=== PATIENT | male | born 1970 | race Two or more races ===

== ENCOUNTER 2020-06-21 13:23 | Emergency (ER) | payer OTHER ==
[~2020-06-21] VITALS: Ht 170.2 cm; Wt 90.7 kg
[~2020-06-21 13:23] MED LIST: ALBUTEROL SULF8.5 GM INH; AMOXICILLIN500 MG PO; AZITHROMYCIN250 MG PO; PREDNISONE20 MG PO; PROMETHAZINE/COD5 ML PO; PROVENTIL2 MG PO
[2020-06-21 13:58] VITALS: BP 126/83
--- NOTE | 2020-06-21 13:58 | Emergency Room Report ---
History of Present Illness General Chief Complaint: Abdominal Pain Source: Patient Present Illness HPI Disclaimer: Please note that this report is being documented using [employer] technology. This can lead to erroneous entry secondary to incorrect interpretation by the dictating instrument. HPI: 49-year-old male history of diverticulitis presents from home due to left lower quadrant pain. He states it has been present for the past 2 days. He states he had similar pain approximately 7 months ago and was diagnosed with diverticulitis at an outside hospital. No nausea no vomiting no fevers. Pain is 8 out of 10 left lower quadrant and nonradiating. Patient denies any urinary complaints. PMH: Diverticulitis PSH: Reviewed Social Hx: Patient denies any smoking drinking or illicit drug use Allergies: Coded Allergies: No Known Allergies (Unverified , 09/10/12) COVID-19 Screening Contact w/high risk pt: No Experienced COVID-19 symptoms?: No COVID-19 Testing performed VISITOR SERVICES INFORMATION ASSISTANT: No Patient History Reviewed Nursing Documentation: PMH: Agreed; PSxH: Agreed Nursing Documentation-PMH Past Medical History: No Stated History Review of Systems All Other Systems: negative except mentioned in HPI Physical Exam Vital Signs Date Time Temp Pulse Resp B/P (MAP) Pulse Ox O2 Delivery O2 Flow Rate FiO2 06/21/20 13:34 98.2 100 20 122/87 (99) 96 Room Air Sp02 EP Interpretation: reviewed, normal General Appearance: well appearing, no apparent distress Head: normocephalic, atraumatic Eyes: bilateral eye PERRL, bilateral eye EOMI ENT: hearing grossly normal, moist mucus membranes Neck: full range of motion, supple Respiratory: lungs clear, normal breath sounds, no rhonchi, no respiratory distress, no retraction, no wheezing Cardiovascular #1: normal peripheral pulses, regular rate, rhythm, no murmur Gastrointestinal: soft, non-distended, no guarding, tenderness - Mild left lower quadrant tenderness Neurologic: alert, oriented x3, no focal defects Skin: normal color, warm/dry Medical Decision Making Diagnostic Impression: Primary Impression: Diverticulitis ER Course MDM: Differential diagnosis included but not limited to diverticulitis, c onstipation, UTI, to name a few. Clinical course-patient had basic laboratory studies sent. Exam did demonstrate mild left lower quadrant tenderness. He denied any hematochezia. He has a history of diverticulitis, he states this feels similar. Vital signs were stable. Laboratory studies showed no significant abnormalities. As patient has a similar episode in the past. He was in no acute distress. Low suspicion for abscess. Will discharge on p.o. antibiotics. Instructed to return immediately for any worsening symptoms or if not improved on p.o. antibiotics. Labs - Laboratory Tests Test 06/21/20 13:45 06/21/20 13:55 Urine Color Yellow Urine Appearance Clear Urine pH 6 (4.5-8.0) Urine Specific [place] 1.015 (1.005-1.035) Urine Protein Negative (NEGATIVE) Urine Glucose (UA) Negative (NEGATIVE) Urine Ketones Negative (NEGATIVE) Urine Blood 1+ (NEGATIVE) H Urine Nitrite Negative (NEGATIVE) Urine Bilirubin Negative (NEGATIVE) Urine Urobilinogen Normal MG/DL (0.0-1.0) Urine Leukocyte Esterase Negative (NEGATIVE) Urine RBC 0-2 /HPF (0 - 0) H Urine WBC 0-2 /HPF (0 - 0) Urine Squamous Epithelial Cells Occasional /LPF Urine Bacteria Occasional /HPF (NONE) White Blood Count 7.7 K/UL (4.8-10.8) Red Blood Count 5.50 M/UL (4.70-6.10) Hemoglobin 17.0 G/DL (14.2-18.0) Hematocrit 48.9 % (42.0-52.0) Mean Corpuscular Volume 89 FL (80-99) Mean Corpuscular Hemoglobin 30.9 PG (27.0-31.0) Mean Corpuscular Hemoglobin Concent 34.8 G/DL (32.0-36.0) Red Cell Distribution Width 11.3 % (11.6-14.8) L Platelet Count 320 K/UL (150-450) Mean Platelet Volume 5.3 FL (6.5-10.1) L Neutrophils (%) (Auto) 54.8 % (45.0-75.0) Lymphocytes (%) (Auto) 36.9 % (20.0-45.0) Monocytes (%) (Auto) 6.6 % (1.0-10.0) Eosinophils (%) (Auto) 0.7 % (0.0-3.0) Basophils (%) (Auto) 1.0 % (0.0-2.0) Sodium Level 141 MMOL/L (136-145) Potassium Level 4.1 MMOL/L (3.5-5.1) Chloride Level 105 MMOL/L (98-107) Carbon Dioxide Level 25 MMOL/L (21-32) Anion Gap 11 mmol/L (5-15) Blood Urea Nitrogen 24 mg/dL (7-18) H Creatinine 0.9 MG/DL (0.55-1.30) Estimated Glomerular Filtration Rate > 60 mL/min (>60) Glucose Level 117 MG/DL (74-106) H Calcium Level 8.8 MG/DL (8.5-10.1) Total Bilirubin 0.3 MG/DL (0.2-1.0) Aspartate Amino Transferase (AST) 28 U/L (15-37) Alanine Aminotransferase (ALT) 52 U/L (12-78) Alkaline Phosphatase 123 U/L (46-116) H Total Protein 8.0 G/DL (6.4-8.2) Albumin 4.0 G/DL (3.4-5.0) Globulin 4.0 g/dL Albumin/Globulin Ratio 1.0 (1.0-2.7) Lipase 200 U/L (73-393) On reevaluation: Patient remained in no acute distress Plan-discharge home, p.o. antibiotics, return precautions were given. Last Vital Signs Date Time Temp Pulse Resp B/P (MAP) Pulse Ox O2 Delivery O2 Flow Rate FiO2 06/21/20 13:34 98.2 100 20 122/87 (99) 96 Room Air Disposition: HOME, SELF-CARE Condition: Stable Scripts Acetaminophen* (TYLENOL EXTRA STRENGTH*) 500 Mg Tablet 500 MG ORAL Q8H PRN for For Pain, #30 TAB 0 Refills Prov: Yuriy Wilde M.D. 06/21/20 Metronidazole* (FLAGYL*) 500 Mg Tablet 500 MG ORAL THREE TIMES A DAY, #21 TAB Prov: Yuriy Wilde M.D. 06/21/20 Ciprofloxacin Hcl* (CIPROFLOXACIN HCL*) 500 Mg Tablet 500 MG ORAL Q12H, #14 TAB 0 Refills Prov: Yuriy Wilde M.D. 06/21/20 Yuriy Wilde M.D. Jun 21, 2020 13:58
[2020-06-21 14:30] LABS: ANION GAP 11 mmol/L (5-15); BLOOD UREA NITROGEN 24 mg/dL (7-18); CALCIUM 8.8 MG/DL (8.5-10.1); CARBON DIOXIDE 25 MMOL/L (21-32); CHLORIDE 105 MMOL/L (98-107); CREATININE 0.9 MG/DL (0.55-1.30); POTASSIUM 4.1 MMOL/L (3.5-5.1); SODIUM 141 MMOL/L (136-145)
[2020-06-21] MEDS ORDERED: Ketorolac 30mg Inj IV ONE (14:30)
[2020-06-21 14:34] LABS: ALANINE AMINOTRANSFERASE 52 U/L (12-78); ALKALINE PHOSPHATASE 123 U/L (46-116); ASPARTATE AMINO TRANSFERASE 28 U/L (15-37); BILIRUBIN,TOTAL 0.3 MG/DL (0.2-1.0)
[2020-06-21 14:43] LABS: APPEARANCE,URINE CLEAR; BILIRUBIN, URINE NEGATIVE (NEGATIVE); COLOR,URINE YELLOW; GLUCOSE, URINE (UA) NEGATIVE (NEGATIVE); KETONES,URINE NEGATIVE (NEGATIVE); LEUKOCYTE ESTERASE ,URINE NEGATIVE (NEGATIVE); NITRITE,URINE NEGATIVE (NEGATIVE); PH,URINE 6 (4.5-8.0); PROTEIN,URINE NEGATIVE (NEGATIVE); UROBILINOGEN,URINE NORMAL MG/DL (0.0-1.0)
[2020-06-21 14:53] LABS: EOSINOPHILS % (AUTO) 0.7 % (0.0-3.0); HEMATOCRIT 48.9 % (42.0-52.0); LYMPHOCYTES % (AUTO) 36.9 % (20.0-45.0); MEAN CORPUSCULAR VOLUME 89 FL (80-99); MONOCYTES % (AUTO) 6.6 % (1.0-10.0); NEUTROPHILS % (AUTO) 54.8 % (45.0-75.0); PLATELET COUNT 320 K/UL (150-450); RED CELL DISTRIBUTION WIDTH 11.3 % (11.6-14.8); WHITE BLOOD COUNT 7.7 K/UL (4.8-10.8)
[2020-06-21] MEDS ORDERED: TYLENOL EXTRA500 MG ORAL (15:16)
[2020-06-21] MEDS ORDERED: CIPROFLOXACIN500 M2 ORAL (15:16)
[2020-06-21] MEDS ORDERED: METRONIDAZOLE500 MG ORAL (15:16)
[2020-06-21 15:30] VITALS: BP 120/85
== END 2020-06-21 15:32 | disposition home or self-care (01) ==
LOC: EMR 13:50
DX: K57.92 Diverticulitis of intestine, part unspecified, without perforation or abscess without bleeding (principal)
CPT/HCPCS: 36415; 80053; 81003; 83690; 85025; 96374; 99284; J1885

== ENCOUNTER 2020-07-04 15:34 | Inpatient (IN) | payer OTHER ==
[~2020-07-04] VITALS: Ht 167.6 cm; Wt 75.9 kg
[~2020-07-04 15:34] MED LIST changes: +CIPROFLOXACIN500 M2 ORAL; +METRONIDAZOLE500 MG ORAL; +TYLENOL EXTRA500 MG ORAL
[2020-07-04 15:44] VITALS: BP 136/88
--- NOTE | 2020-07-04 15:44 | NUR ---
ED Nurse Note: Pt walked in to ED from home c/o left lower abdominal pain and rectal bleeding x 2 days. Denies nausea, vomiting, diarrhea. Pt reports light red blood streaks in the stool. Lastt BM was this morning with regular formed stool. Pt AAOx4, verbally responsive. No SOB, on room air. Pt placed on manager monitoring. ERPA at bedside.
[2020-07-04] MEDS ORDERED: Omnipaque-300 100ml vial INJ PRN (16:00)
--- NOTE | 2020-07-04 16:00 | NUR ---
ED Nurse Note: IV line established. Blood and urine sent to lab.
--- NOTE | 2020-07-04 16:09 | NUR ---
ED Nurse Note: ERPA changed Promethazine 1ml IM order to Promethazine 1ml IVP. Med given as ordered.
[2020-07-04] MEDS ORDERED: Morphine Sulfate 2mg/ml Inj(IV/IM USE ONLY) IVP ONE (16:15)
[2020-07-04 16:21] LABS: BASOPHILS % (AUTO) 1.1 % (0.0-2.0); HEMATOCRIT 49.8 % (42.0-52.0); LYMPHOCYTES % (AUTO) 39.7 % (20.0-45.0); MEAN CORPUSCULAR VOLUME 93 FL (80-99); MONOCYTES % (AUTO) 6.8 % (1.0-10.0); NEUTROPHILS % (AUTO) 51.3 % (45.0-75.0); PLATELET COUNT 281 K/UL (150-450); RED BLOOD COUNT 5.38 M/UL (4.70-6.10); RED CELL DISTRIBUTION WIDTH 11.8 % (11.6-14.8); WHITE BLOOD COUNT 8.4 K/UL (4.8-10.8)
[2020-07-04 16:22] LABS: APPEARANCE,URINE CLEAR; BILIRUBIN, URINE NEGATIVE (NEGATIVE); COLOR,URINE AMBER; GLUCOSE, URINE (UA) NEGATIVE (NEGATIVE); KETONES,URINE NEGATIVE (NEGATIVE); LEUKOCYTE ESTERASE ,URINE 2+ (NEGATIVE); NITRITE,URINE NEGATIVE (NEGATIVE); PH,URINE 5 (4.5-8.0); PROTEIN,URINE NEGATIVE (NEGATIVE); UROBILINOGEN,URINE NORMAL MG/DL (0.0-1.0)
[2020-07-04 16:32] LABS: ANION GAP 10 mmol/L (5-15); BLOOD UREA NITROGEN 24 mg/dL (7-18); CALCIUM 8.8 MG/DL (8.5-10.1); CARBON DIOXIDE 26 MMOL/L (21-32); CHLORIDE 103 MMOL/L (98-107); POTASSIUM 3.8 MMOL/L (3.5-5.1); SODIUM 139 MMOL/L (136-145)
--- NOTE | 2020-07-04 16:37 | Emergency Room Report ---
History of Present Illness General Chief Complaint: Abdominal Pain Source: Patient (Yi Kenny) Present Illness HPI 49-year-old male with history of diverticulitis who was last seen in [place] [facility] 13 days ago currently taking Cipro and Flagyl here complaining of 2 days of left lower quadrant abdominal pain rating a 10 out of 10 with 1 day of profuse amount of rectal bleeding. Patient did not have any blood in stool last time that he was here. Denies any fever and chills, diffuse abdominal pain, nausea vomiting. Has been compliant with taking his antibiotics. Reports he has been taking Tylenol for pain with minimal relief. Denies chest pain, shortness of breath, headache and dizziness. Vital signs are within normal limits. Denies alcohol intake, tobacco smoke, drug use. Denies taking any blood thinners. 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: No (Yi Kenny) Patient History Past Medical History: see triage record Past Surgical History: none Pertinent Family History: none Reviewed Nursing Documentation: PMH: Agreed; PSxH: Agreed (Yi Kenny) Nursing Documentation-PMH Past Medical History: No Stated History (Yi Kenny) Review of Systems All Other Systems: negative except mentioned in HPI (Yi Kenny) Physical Exam Vital Signs Date Time Temp Pulse Resp B/P (MAP) Pulse Ox O2 Delivery O2 Flow Rate FiO2 07/04/20 15:39 98.1 101 18 136/88 (104) 96 Room Air Sp02 EP Interpretation: reviewed, normal General Appearance: no apparent distress, alert, GCS 15, non-toxic Head: normocephalic, atraumatic Eyes: bilateral eye normal inspection, bilateral eye PERRL ENT: hearing grossly normal, normal pharynx, no angioedema, normal voice Neck: full range of motion, supple/symm/no masses Respiratory: chest non-tender, lungs clear, normal breath sounds, speaking full sentences Cardiovascular #1: regular rate, rhythm, no edema, no murmur Gastrointestinal: non tender, soft, no organomegaly, no peritonitis, no bruit, non-distended, no rebound, guarding - Left lower quadrant Rectal: deferred Genitourinary: no CVA tenderness Musculoskeletal: back normal Neurologic: alert, motor strength/tone normal, oriented x3, sensory intact, responsive, speech normal Psychiatric: judgement/insight normal, memory normal, mood/affect normal, no suicidal/homicidal ideation Skin: no rash Lymphatic: no adenopathy (Yi Kenny) Medical Decision Making PA Attestation All diagnosis and treatment plans were discussed and reviewed by my supervising physician Dr. Marshall (Yi Kenny) Diagnostic Impression: Primary Impression: GI bleed Additional Impressions: Diverticulosis Abdominal pain ER Course 49-year-old male with history of diverticulitis who was last seen in [place] [facility] 13 days ago currently taking Cipro and Flagyl here complaining of 2 days of left lower quadrant abdominal pain rating a 10 out of 10 with 1 day of profuse amount of rectal bleeding. Patient did not have any blood in stool last time that he was here. Denies any fever and chills, diffuse abdominal pain, nausea vomiting. Has been compliant with taking his antibiotics. Reports he has been taking Tylenol for pain with minimal relief. Denies chest pain, shortness of breath, headache and dizziness. Vital signs are within normal limits. Denies alcohol intake, tobacco smoke, drug use. Denies taking any blood thinners. Ddx considered but are not limited to: appendicitis, cholecystis, gastritis, gastroenteritis, UTI, pyelonephritis, SBO, diverticulitis, influenza with GI manifestation, VT, pancreatitis Vital signs: are WNL, pt. is afebrile H&PE are most consistent with: GI bleed ORDERS: abdominal CT, abdominal pain set, EKG, ED INTERVENTIONS: NS bolus, Zofran, Pepcid, morphine Patient was admitted with diagnosis of GI bleed to under supervision of : Rolando pt stable at time of admission (Yi Kenny) ER Course I spoke with Dr. Krishna from the [facility], and reviewed the patients presentation, workup, results, and treatment. They will admit the patient for further care and evaluation, and assume care of the patient at this time. (Leeann Marshall D.O.) EKG Diagnostic Results Rate: normal Rhythm: NSR ST Segments: no acute changes Other Impression No acute ST changes ASA given to the pt in ED: No (Yi Kenny) CT/MRI/US Diagnostic Results CT/MRI/US Diagnostic Results : Imaging Test Ordered: CT chest abd pelvis with contrast Impression FINDINGS: Lung bases: Unremarkable. ABDOMEN: Liver: Unremarkable. Gallbladder and bile ducts: Unremarkable. Pancreas: Unremarkable. Spleen: Unremarkable. Adrenals: Unremarkable. Kidneys and ureters: Unremarkable. No obstructing stones. No hydronephrosis. Stomach and bowel: Mild colonic diverticulosis without diverticulitis. PELVIS: Appendix: Normal appendix. Bladder: Unremarkable. Reproductive: Unremarkable as visualized. ABDOMEN and PELVIS: Intraperitoneal space: Unremarkable. No free air. No significant fluid collection. Bones/joints: No acute fracture. Soft tissues: Unremarkable. Vasculature: Unremarkable. Lymph nodes: Unremarkable. IMPRESSION: 1. No acute abnormality. 2. Mild colonic diverticulosis without diverticulitis. (Yi Kenny) Last Vital Signs Date Time Temp Pulse Resp B/P (MAP) Pulse Ox O2 Delivery O2 Flow Rate FiO2 07/04/20 15:44 101 18 Room Air 07/04/20 15:44 98.1 136/88 96 (Yi Kenny) Disposition: ADMITTED INPATIENT Condition: Serious Referrals: NOT CHOSEN IPA/,REFERRING (PCP) Yi Kenny Jul 04, 2020 16:37 Leeann Marshall D.O. Jul 04, 2020 20:13
[2020-07-04 16:39] LABS: ALANINE AMINOTRANSFERASE 74 U/L (12-78); ALBUMIN 3.9 G/DL (3.4-5.0); ALBUMIN/GLOBULIN RATIO 1.2 (1.0-2.7); ALKALINE PHOSPHATASE 106 U/L (46-116); ASPARTATE AMINO TRANSFERASE 35 U/L (15-37); BILIRUBIN,TOTAL 0.2 MG/DL (0.2-1.0)
--- NOTE | 2020-07-04 16:50 | NUR ---
ED Nurse Note: Pt taken to CT via puma, accompanied by a tech.
--- NOTE | 2020-07-04 17:06 | NUR ---
ED Nurse Note: Pt returned from CT.
--- NOTE | 2020-07-04 17:20 | Diagnostic Imaging Report ---
EXAM: CT Abdomen and Pelvis With Intravenous Contrast CLINICAL HISTORY: PAIN TECHNIQUE: Axial computed tomography images of the abdomen and pelvis with intravenous contrast. CTDI is 6.1 mGy and DLP is 347.5 mGy-cm. One or more of the following dose reduction techniques were used: automated exposure control, adjustment of the mA and/or kV according to patient size, use of iterative reconstruction technique. COMPARISON: No relevant prior studies available. FINDINGS: Lung bases: Unremarkable. ABDOMEN: Liver: Unremarkable. Gallbladder and bile ducts: Unremarkable. Pancreas: Unremarkable. Spleen: Unremarkable. Adrenals: Unremarkable. Kidneys and ureters: Unremarkable. No obstructing stones. No hydronephrosis. Stomach and bowel: Mild colonic diverticulosis without diverticulitis. PELVIS: Appendix: Normal appendix. Bladder: Unremarkable. Reproductive: Unremarkable as visualized. ABDOMEN and PELVIS: Intraperitoneal space: Unremarkable. No free air. No significant fluid collection. Bones/joints: No acute fracture. Soft tissues: Unremarkable. Vasculature: Unremarkable. Lymph nodes: Unremarkable. IMPRESSION: 1. No acute abnormality. 2. Mild colonic diverticulosis without diverticulitis.
--- NOTE | 2020-07-04 18:29 | NUR ---
ED Nurse Note: Pt unable to provide stool specimen at this time. ERPA aware.
[2020-07-04 18:45] VITALS: BP 115/87
--- NOTE | 2020-07-04 19:02 | NUR ---
HAND-OFF: Report given to Liza PARKER.
--- NOTE | 2020-07-04 19:06 | NUR ---
ED Nurse Note: Endorsed care of pt. Pt found laying in bed, AAOx4. No acute distress noted in stable condition. Pt has not been able to give BM sample.
[2020-07-04] MEDS ORDERED: cefTRIAXone 1 GM in NS 55 ML IVPB ONE (19:15)
[2020-07-04] MEDS ORDERED: Pantoprazole Inj IVP ONE (19:15)
[2020-07-04] MEDS ORDERED: DICYCLOMINE HCL10 MG ORAL (19:34)
[2020-07-04] MEDS ORDERED: XANAX0.5 MG ORAL (19:34)
[2020-07-04] MEDS ORDERED: Piperacillin/Tazobactam 3.375 GM in NS 110 ML IVPB ONE (20:00)
[2020-07-04] MEDS ORDERED: Morphine Sulfate 2mg/ml Inj(IV/IM USE ONLY) IVP PRN (20:00)
--- NOTE | 2020-07-04 20:11 | NUR ---
Michael escoto in [facility] - 07/04/20 at 2013 by CHUN ariel [phone]
--- NOTE | 2020-07-04 20:11 | NUR ---
ariel [phone]
--- NOTE | 2020-07-04 20:13 | NUR ---
ariel, patient's son [phone]
--- NOTE | 2020-07-04 20:41 | NUR ---
ED Nurse Note: cultures sent to lab
[2020-07-04 20:43] VITALS: BP 121/86
--- NOTE | 2020-07-04 20:49 | NUR ---
ED Nurse Note: Report given to KEITH Mclain in med surg.
--- NOTE | 2020-07-04 21:00 | NUR ---
ED Nurse Note: pt transported to med surg floor.
--- NOTE | 2020-07-04 21:00 | NUR ---
NURSE NOTES: ADMITTED 49 YEAR OLD MALE TO ROOM 414 BED 1 VIA WHEELCHAIR FROM EMERGENCY DEPARTMENT. PATIENT AWAKE, ALERT/ORIENTED X4, VERBALLY RESPONSIVE, CHIEF COMPLAINT, ABDOMINAL PAIN / LEFT LOWER QUADRANT, RECTAL BLEED X2 DAYS - ADMITTING DIAGNOSIS GI BLEED, UNDER THE CARE OF DR. RESENDIZ. IV INTACT TO RIGHT AC/GAUGE 20, NO REDNESS/SWELLING NOTED. NO SIGNS AND SYMPTOMS OFACUTE CARDIO RESPIRATORY DISTRESS/SHORTNESS OF BREATH, NO PERIPHERAL EDEMA NOTED. ABDOMEN SOFT/NON DISTENDED/AUDIBLE BOWEL SOUNDS, NO N/V/D (RECTAL BLEED X2 DAYS), TENDERNESS LEFT LOWER QUADRANT, SPECI CONTRERAS PLACED IN RESTROOM FOR STOOL SPECIMEN. MEDICATION RECONCILIATION COMPLETED. ORIENTATED PATIENT TO ROOM/ENVIRONMENT. SIDE RAILS UP X2, BED IN LOWEST POSITION FOR SAFETY, ENCOURAGED PATIENT TO UTILIZE CALL LIGHT FOR ASSISTANCE, VERBALIZED UNDERSTANDING. NAD. VSS.
[2020-07-04 21:30] VITALS: BP 119/74
[2020-07-05] VITALS: BP 110/76
[2020-07-05 04:00] VITALS: BP 114/72
--- NOTE | 2020-07-05 07:15 | NUR ---
NURSE HAND-OFF: Important Events on Shift:[NEW ADMISSION; UNEVENTFUL NIGHT] Patient Status: [STABLE, SLEPT IN LONG INTERVALS, NO ABDOMINAL DISCOMFORT] Diet: [REGULAR, NO MODIFICATIONS] Pending Orders: [STOOL OB, (NO BOWEL MOVEMENT)] Pending Results/Labs:[N/A Pending MD notification:[N/A] Latest Vital Signs: Temperature 97.3 , Pulse 59 , B/P 114 /72 , Respiratory Rate 18 , O2 SAT 99 , Room Air, O2 Flow Rate . Vital Sign Comment: [STABLE, AFEBRILE] Latest Bradshaw Fall Score: 35 Fall Risk: Medium Risk Safety Measures: Call light , Bed Alarm Zone 2, Side Rails Side Rails x2, Bed position Low and Locked. Fall Precautions: Door Sign Patient Fall Education Report given to [KEITH ENRIQUEZ].
--- NOTE | 2020-07-05 07:44 | History and Physical ---
History of Present Illness General Date patient seen: Jul 05, 2020 Reason for Hospitalization: Abdominal Pain Present Illness HPI 44-year-old male with history of recently treated diverticulitis who was seen in [facility] ER about 2 weeks prior to this presentation and was discharged on Cipro and Flagyl now returns with 2 days of left lower quadrant abdominal pain, 10 out of 10 and 1 day of bright red blood per rectum. Patient suffers from chronic constipation. He denies fever, chills, nausea, vomiting. Patient has finished his course of antibiotics. He took Tylenol which provided relief of pain. Patient denies any chest pain, palpitations, shortness of breath, syncope, dizziness or lightheadedness. Patient denies taking aspirin or any blood thinners. Patient takes no other medications and has no other medical problems. 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 He has never had a colonoscopy. Patient denies any family history of colon cancer. Patient denies weight loss or change in stool caliber. 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 Allergies: Coded Allergies: No Known Allergies (Unverified , 09/10/12) COVID-19 Screening Contact w/high risk pt: No Recent Travel to affected area: No Experienced COVID-19 symptoms?: No Medication History Scheduled Ciprofloxacin Hcl* (Ciprofloxacin Hcl*), 500 MG ORAL Q12H Dicyclomine Hcl* (Dicyclomine Hcl*), 20 MG ORAL TID, (Reported) Metronidazole* (Flagyl*), 500 MG ORAL THREE TIMES A DAY Scheduled PRN Acetaminophen* (Tylenol Extra Strength*), 500 MG ORAL Q8H PRN for For Pain Miscellaneous Medications Alprazolam* (Xanax*), 0.5 MG ORAL, (Reported) Patient History Healthcare decision maker Resuscitation status Advanced Directive on File Review of Systems Constitutional: Denies: no symptoms, see HPI, chills, sweats, fever, malaise, weakness, other Eye: Denies: no symptoms, see HPI, eye pain, blurred vision, tearing, double vision, nose pain, nose congestion, acuity changes, discharge, other ENT: Denies: no symptoms, see HPI, ear pain, ear discharge, nose pain, nose congestion, throat pain, throat swelling, mouth pain, hearing loss, nasal discharge, other Respiratory: Denies: no symptoms, see HPI, cough, orthopnea, shortness of breath, stridor, wheezing, POLLOCK, sputum, other Cardiovascular: Denies: no symptoms, see HPI, chest pain, edema, palpitations, syncope, PND, other Gastrointestinal: Reports: see HPI, abdominal pain - LLQ, other - BRBPR Genitourinary: Denies: no symptoms, see HPI, discharge, dysuria, frequency, hematuria, pain, retention, incontinence, urgency, vag bleed/dc, other Musculoskeletal: Denies: no symptoms, see HPI, back pain, gout, joint pain, joint swelling, muscle pain, muscle stiffness, other Skin: Denies: no symptoms, see HPI, rash, change in color, change in hair/nails, dryness, lesions, other Psychiatric: Denies: no symptoms, see HPI, prior hx, anxiety, depressed feelings, emotional problems, SI, HI, hallucinations, other Neurological: Denies: no symptoms, see HPI, headache, numbness, paresthesia, seizure, tingling, tremors, focal weakness, syncope, dizziness, other Endocrine: Denies: no symptoms, see HPI, excessive sweating, flushing, intolerance to temperature, increased thirst, increased urine, unexplained weight loss, other Hematologic/Lymphatic: Denies: no symptoms, see HPI, anemia, blood clots, easy bleeding, easy bruising, swollen glands, diathesis, other Physical Exam General Appearance: WD/WN, no apparent distress, alert Lines, tubes and drains: peripheral HEENT: normocephalic, atraumatic, anicteric, mucous membranes moist, PERRL, EOMI Neck: non-tender, normal alignment, supple Respiratory/Chest: chest wall non-tender, lungs clear, normal breath sounds, no respiratory distress, no accessory muscle use Cardiovascular/Chest: normal peripheral pulses, normal rate, regular rhythm, no gallop/murmur, no JVD Abdomen: soft, tender - LLQ Extremities: normal range of motion, non-tender, no edema Skin Exam: normal pigmentation 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, no motor/sensory deficits, abnormal gait, oriented x 3 Last 24 Hour Vital Signs Date Time Temp Pulse Resp B/P (MAP) Pulse Ox O2 Delivery O2 Flow Rate FiO2 07/05/20 04:00 97.3 59 18 114/72 (86) 99 07/05/20 00:00 96.9 55 18 110/76 (87) 98 07/04/20 21:30 97.1 59 18 119/74 (89) 99 07/04/20 21:00 Room Air 07/04/20 21:00 98.8 74 18 118/80 100 Room Air 07/04/20 20:43 98.1 74 17 121/86 98 Room Air 07/04/20 18:45 98.1 74 17 115/87 98 Room Air 07/04/20 16:39 98.1 07/04/20 15:44 101 18 Room Air 07/04/20 15:44 98.1 101 18 136/88 96 Room Air 07/04/20 15:39 98.1 101 18 136/88 (104) 96 Room Air Intake and Output 07/04/20 07/05/20 19:00 07:00 Intake Total 100 ml 1125 ml Balance 100 ml 1125 ml Intake Oral 460 ml IV Total 100 ml 665 ml # Voids 1 Laboratory Tests Test 07/04/20 16:00 White Blood Count 8.4 K/UL (4.8-10.8) Red Blood Count 5.38 M/UL (4.70-6.10) Hemoglobin 17.0 G/DL (14.2-18.0) Hematocrit 49.8 % (42.0-52.0) Mean Corpuscular Volume 93 FL (80-99) Mean Corpuscular Hemoglobin 31.6 PG (27.0-31.0) H Mean Corpuscular Hemoglobin Concent 34.1 G/DL (32.0-36.0) Red Cell Distribution Width 11.8 % (11.6-14.8) Platelet Count 281 K/UL (150-450) Mean Platelet Volume 6.5 FL (6.5-10.1) Neutrophils (%) (Auto) 51.3 % (45.0-75.0) Lymphocytes (%) (Auto) 39.7 % (20.0-45.0) Monocytes (%) (Auto) 6.8 % (1.0-10.0) Eosinophils (%) (Auto) 1.0 % (0.0-3.0) Basophils (%) (Auto) 1.1 % (0.0-2.0) Prothrombin Time 10.9 SEC (9.30-11.50) Prothromb Time International Ratio 1.0 (0.9-1.1) Activated Partial Thromboplast Time 25 SEC (23-33) Urine Color Venus Urine Appearance Clear Urine pH 5 (4.5-8.0) Urine Specific [place] 1.025 (1.005-1.035) Urine Protein Negative (NEGATIVE) Urine Glucose (UA) Negative (NEGATIVE) Urine Ketones Negative (NEGATIVE) Urine Blood 1+ (NEGATIVE) H Urine Nitrite Negative (NEGATIVE) Urine Bilirubin Negative (NEGATIVE) Urine Ictotest Negative (NEGATIVE) Urine Urobilinogen Normal MG/DL (0.0-1.0) Urine Leukocyte Esterase 2+ (NEGATIVE) H Urine RBC 0-2 /HPF (0 - 0) H Urine WBC 5-10 /HPF (0 - 0) H Urine Squamous Epithelial Cells Occasional /LPF Urine Bacteria Few /HPF (NONE) Urine Mucus Few /LPF (NONE/OCC) H Sodium Level 139 MMOL/L (136-145) Potassium Level 3.8 MMOL/L (3.5-5.1) Chloride Level 103 MMOL/L (98-107) Carbon Dioxide Level 26 MMOL/L (21-32) Anion Gap 10 mmol/L (5-15) Blood Urea Nitrogen 24 mg/dL (7-18) H Creatinine 1.0 MG/DL (0.55-1.30) Estimat Glomerular Filtration Rate > 60 mL/min (>60) Glucose Level 119 MG/DL (74-106) H Calcium Level 8.8 MG/DL (8.5-10.1) Total Bilirubin 0.2 MG/DL (0.2-1.0) Aspartate Amino Transf (AST/SGOT) 35 U/L (15-37) Alanine Aminotransferase (ALT/SGPT) 74 U/L (12-78) Alkaline Phosphatase 106 U/L (46-116) Troponin I 0.000 ng/mL (0.000-0.056) Total Protein 7.2 G/DL (6.4-8.2) Albumin 3.9 G/DL (3.4-5.0) Globulin 3.3 g/dL Albumin/Globulin Ratio 1.2 (1.0-2.7) Lipase 168 U/L (73-393) Urine Opiates Screen Negative (NEGATIVE) Urine Barbiturates Screen Positive (NEGATIVE) H Phencyclidine (PCP) Screen Negative (NEGATIVE) Urine Amphetamines Screen Negative (NEGATIVE) Urine Benzodiazepines Screen Negative (NEGATIVE) Urine Cocaine Screen Negative (NEGATIVE) Urine Marijuana (THC) Screen Negative (NEGATIVE) Serum Alcohol < 3 mg/dL Height (Feet): 5 Height (Inches): 6.00 Weight (Pounds): 166 Medications Current Medications Medications (Trade) Dose Ordered Sig/Poornima Route PRN Reason Start Time Stop Time Status Last Admin Dose Admin Iohexol (OMNIPAQUE-300 100ml) 100 ml NOW PRN INJ Radiology Procedure 07/04/20 16:00 07/06/20 15:59 Morphine Sulfate (Morphine Sulfate) 2 mg PRN PRN IVP Moderate Pain (Pain Scale 4-6) 07/04/20 20:00 Ondansetron HCl (Zofran) 4 mg PRN PRN IVP Nausea & Vomiting 07/04/20 20:00 Assessment/Plan Problem List: (1) GI bleed ICD Codes: K92.2 - Gastrointestinal hemorrhage, unspecified SNOMED: 66742185 (2) Diverticulosis ICD Codes: K57.90 - Diverticulosis of intestine, part unspecified, without perforation or abscess without bleeding SNOMED: 349664321 (3) Diverticulitis ICD Codes: K57.92 - Diverticulitis of intestine, part unspecified, without perforation or abscess without bleeding SNOMED: 471186646 (4) Abdominal pain ICD Codes: R10.9 - Unspecified abdominal pain SNOMED: 79934700 Status: stable Assessment/Plan: 49-year-old male with history of recent treated diverticulitis presents with bright red blood per rectum and left lower quadrant abdominal pain. CT abdomen pelvis is unremarkable except for colonic diverticulosis without diverticulitis. Hemoglobin stable and without a drop, no leukocytosis. #Left lower quadrant abdominal pain #Diverticulosis #Lower GI bleed, from diverticulosis versus constipation/hemorrhoids Admit to inpatient Serial hemoglobin checks GI consult Dr. Hickey Empiric Zosyn Possible colonoscopy #Constipation Colace and MiraLAX VT prophylaxis: SCD boots Diet: Regular CODE STATUS: Full code I spent 72 minutes on this encounter, 35 minutes spent on counseling and care coordination. Plan of care discussed with RN, patient and GI practice consultant. Time of note may not represent time of encounter. Paul Martin M.D. Jul 05, 2020 07:44
[2020-07-05 08:00] VITALS: BP 115/73
--- NOTE | 2020-07-05 08:09 | NUR ---
NURSE NOTES: Received patient in bed, eating breakfast. he is AOx4, ambulatory with steady gait, Patient endorses a little bit of abdominal pain (2/10). patient is primarily Turkish speaking and understands a little Japanese. Awaiting OB stool sample. patient aware. He will be monitored for pain. bed at the lowest position, call light within reach.
--- NOTE | 2020-07-05 11:00 | Consultation ---
DATE OF CONSULTATION: 07/05/2020 GASTROENTEROLOGY CONSULTATION CONSULTING PHYSICIAN: Carlyle Villavicencio MD. CHIEF COMPLAINT: Rectal bleeding and abdominal pain. HISTORY OF PRESENT ILLNESS: This 49-year-old male with past medical history of hypertension. He actually came to the emergency room here about two weeks ago, was given antibiotics of Cipro and Flagyl for possible diverticulitis, was sent home, came back again complaining of left lower quadrant pain at this time with rectal bleeding. The patient denies any nausea or vomiting. Denies any hematemesis. He states that his bleeding has subsided since last night. He was able to move his bowel, but his bowel was a little hard. Pain is also improving. PAST MEDICAL HISTORY: Hypertension. ALLERGIES: No known drug allergies. MEDICATIONS: Currently on Cipro and Flagyl. FAMILY HISTORY: Noncontributory. SOCIAL HISTORY: The patient denies any tobacco, alcohol, or drug abuse. PHYSICAL EXAMINATION: GENERAL: A well-developed male, in no acute distress. VITAL SIGNS: Temperature 97.7, pulse 77, respiration 18, blood pressure 115/73. HEENT: Normocephalic and atraumatic. Sclerae are anicteric. NECK: Supple. No evidence of obvious lymphadenopathy. CARDIOVASCULAR: Regular rate and rhythm. Plus S1-S2. LUNGS: Clear to auscultation bilaterally. ABDOMEN: Positive bowel sounds. Soft. Minimal tenderness to palpation in left lower quadrant. No rebound. No guarding. No peritoneal sign. EXTREMITIES: No cyanosis, no clubbing, no edema. LABORATORY DATA: White count is 8.4, hemoglobin 17, hematocrit 49, platelet count is 281,000. CT of the abdomen and pelvis showed evidence of diverticulosis without any diverticulitis. ASSESSMENT AND PLAN: This is a 49-year-old male with rectal bleeding. Differential diagnosis will be diverticular bleed. The bleeding seems to me that has already subsided and given he has pain it would be unlikely to be just the diverticular bleed given he has pain unless the patient has diverticulitis on top of it, but CT did not show any evidence of diverticulitis and he does not have white count. The patient is also taking antibiotics for now. Other possibility is hemorrhoids given the patient states the stool was hard. Our plan for him, he needs a colonoscopy but he does not want to stay over the weekend to be done on Wednesday, he wants to go home and come as an outpatient. He was explained the risks that he is taking, but he said he is willing to take the risk. Given his white count is normal and given his hemoglobin is 17, we are going to agree with him to be going home today. He was given prescription for Colace and MiraLAX for constipation. We told him to come back to the ER if he has recurrent bleeding or worsening of the pain. The patient has an appointment in my office on Wednesday for followup. Carlyle Villavicencio M.D. DR: MARLON JOB#: [id number] CC:
[2020-07-05 12:00] VITALS: BP 111/77
--- NOTE | 2020-07-05 14:40 | NUR ---
CASE MANAGEMENT:INITIAL REVIEW 49 YR OLD MALE FROM HOME CC; ABDOMINAL PAIN SI;GI BLEED. DIVERTICULOSIS. 98.1 101 18 136/88 96% ON RA BUN 24 UA+ BLOOD, LEUKOCYTE ESTERASE, RBC, WBC, MUCUS URINE TOX (+) BARBITURATES TYPE & CROSS ABD/PELVIS CT ~ 1. No acute abnormality. 2. Mild colonic diverticulosis without diverticulitis. BLOOD CX ~ RESULT PENDING IS;ZOFRAN IV PHENERGAN IM ONCE IVF NS BOLUS MORPHINE IV PEPCID IV PROTONIX IV ROCEPHIN IV ZOSYN IV ADMITTED TO MED SURG07/04/20 @ 2136 MED SURG STATUS DCP;PATIENT IS FROM HOME
[2020-07-05 16:00] VITALS: BP 118/79
[2020-07-05] MEDS ORDERED: COLACE100 MG ORAL (16:38)
--- NOTE | 2020-07-05 16:39 | Discharge Instructions ---
Discharge Instructions Discharge Instructions Follow up with: Dr. Hickey on 07/08/20 Resume Normal Activity?: Yes For Congestive Heart Failure Reminder Report to your physician any weight gain of 5 pounds or more in one week. Paul Martin M.D. Jul 05, 2020 16:39
--- NOTE | 2020-07-05 16:40 | Discharge Summary ---
Discharge Summary Hospital Course Date of Admission Jul 04, 2020 at 18:57 Date of Discharge July 05, 2020 Admitting Diagnosis GI Bleed HPI Topher Willingham is a 49 year old male who was admitted on Jul 04, 2020 at 18:57 for Gastrointestinal Bleed Consultations Gastroenterology Hospital Course 44-year-old male with history of recently treated diverticulitis who was seen in [facility] ER about 2 weeks prior to this presentation and was discharged on Cipro and Flagyl now returns with 2 days of left lower quadrant abdominal pain, 10 out of 10 and 1 day of bright red blood per rectum. Patient suffers from chronic constipation. He denies fever, chills, nausea, vomiting. Patient has finished his course of antibiotics. He took Tylenol which provided relief of pain. Patient denies any chest pain, palpitations, shortness of breath, syncope, dizziness or lightheadedness. Patient denies taking aspirin or any blood thinners. Patient takes no other medications and has no other medical problems. 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 Patient denies any family history of colon cancer. Patient denies weight loss or change in stool caliber. Patient was admitted. CT abdomen pelvis is unremarkable except for colonic diverticulosis without diverticulitis. Hemoglobin stable and without a drop, no leukocytosis. He was seen by GI, who offered colonoscopy after antibiotics overweekend, on Wednesday. Patient did well clinically and preferred to be discharged and follow up as outpatient. 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, no motor/sensory deficits, abnormal gait, oriented x 3 DC diagnosis: #Left lower quadrant abdominal pain #Diverticulosis #Lower GI bleed, from diverticulosis versus constipation/hemorrhoids #Constipation Discharge Medications New Medications: Docusate Sodium* (Colace*) 100 Mg Capsule 100 MG ORAL TWICE A DAY for 14 Days, #60 CAP 2 Refills Continued Medications: Acetaminophen* (Tylenol Extra Strength*) 500 Mg Tablet 500 MG ORAL Q8H PRN for For Pain, #30 TAB 0 Refills Alprazolam* (Xanax*) 0.5 Mg Tablet 0.5 MG ORAL for anxiety, TAB Dicyclomine Hcl* (Dicyclomine Hcl*) 10 Mg Capsule 20 MG ORAL TID for IBS, #10 CAP Discharge Condition Upon Discharge: stable Discharge Vital Signs Last Vital Signs Date Time Temp Pulse Resp B/P (MAP) Pulse Ox O2 Delivery O2 Flow Rate FiO2 07/05/20 16:00 97.9 80 18 118/79 (92) 99 07/05/20 09:00 Room Air Discharge Disposition Patient was discharged to home Discharge Diagnoses: (1) Diverticulosis (2) Abdominal pain (3) GI bleed Discharge Instructions Discharge Instructions Follow up with: Dr. Hickey on 07/08/20 Paul Martin M.D. Jul 05, 2020 16:40
--- NOTE | 2020-07-05 17:07 | NUR ---
NURSE NOTES: Patient was discharged home at 1700. patient accompanied by , he left with all belongings and medicines. Patient with no signs of bleed, or any distress. he was ambulatory with steady gain, no complaints of pain. Him and his were explained discharge instructions and verbalized understanding. He will follow up with primary doctor for colonoscopy.
--- NOTE | 2020-07-06 15:45 | CDS Physician Query ---
Clarification is required for compliance, coding accuracy, and to reflect severity of illness for this patient Dear Paul Patel M.D. Date: 07/06/20 CDIS: MICHAEL WALDRON Please respond to the following question: Is there a diagnosis specific to these symptoms or values? If so please state below. CLINICAL DOCUMENTATION STATES: 44-year-old male with history of recently treated diverticulitis who was seen in [facility] ER about 2 weeks prior to this presentation and was discharged on Cipro and Flagyl now returns with 2 days of left lower quadrant abdominal pain, 10 out of 10 and 1 day of bright red blood per rectum. [H&P Paul Martin M.D.Jul 05, 2020 07:44] Discharge Diagnosis: Left lower quadrant abdominal pain, Diverticulosis, Lower GI bleed, from diverticulosis versus constipation/hemorrhoids, Constipation Clinical Finding Show: Vitals (07/04): T98.8F, Pulse 101 RR 18 BP136/88 LAB (07/04) : Hemat; WBC 8.4, Neut% 51.3 Urines(07/04): Ur.Bacteria "FEW", Ur. Leuk Kerline 2+ Medication: Ceftriaxone 55@110 IV 07/04/20, PIPERACILLIN SOD 110@1220 IV 07/04 PHYSICIAN RESPONSE: Can you please clarify if the FINDINGS are: [ x ] Clinically insignificant (Does not lead to a significant clinical event and is routinely expected condition) [ ] Clinically significant (Leads to a significant clinical event or additional significant diagnosis) Please, specify [ ] Others: Present on Admission: [x] Yes [] No [] Clinically Undetermined _paul martin 07/06/2020 Physician signature Date Please also document in your Progress Notes and/or Discharge Summary and indicate if the condition was present on admission. MTDD
--- NOTE | 2020-07-07 16:29 | NUR ---
CASE MANAGEMENT: Faxed clinical info (face sheet /DC summary/H&P/ ER MD notes/progress notes) to MAR[facility] ANTONIO ROBLERO @ [phone]. T#[id number]
--- NOTE | 2020-07-07 19:36 | Cardiology Report ---
APPROVED REPORT EKG Measurement Heart [id number] NM [id number] <Conclusion> Normal sinus rhythm Normal ECG
== END 2020-07-05 17:05 | disposition home or self-care (01) | DRG 379 ==
LOC: EMR 16:00 → 4E 18:57 → EDBEDREQ 20:24
DX: K57.91 Diverticulosis of intestine, part unspecified, without perforation or abscess with bleeding (principal); K64.9 Unspecified hemorrhoids; K59.09 Other constipation
CPT/HCPCS: 36415; 74177; 80053; 80307; 81003; 83690; 84484; 85025; 85610; 85730; 86850; 86900; 86901; 87040; 93005; 96361; 96365; 96367; 96375; 99285; G0480; J2405; J7030